=== PATIENT | female | born 1975 | race Caucasian/White ===

== ENCOUNTER 2020-06-09 16:55 | Outpatient (RCR) | payer OTHER, SELFPAY ==
[2020-06-09] MEDS: COVID-19 VACC, MRNA(PFIZER)/PF 30 MCG/0.3 ML SYRINGE IM (17:33)
[2020-07-09] MEDS: COVID-19 VACC, MRNA(PFIZER)/PF 30 MCG/0.3 ML SYRINGE IM (10:17)
== END 2020-09-01 23:59 ==
LOC: IMMUN 16:55
PROVIDERS: PCP Student in an Organized Health Care Education/Training Program; Referring Provider Family Medicine; Visit Provider Family Medicine
DX: Z23 Encounter for immunization (principal)
CPT/HCPCS: 0001A; 0002A; 91300

== ENCOUNTER → 2020-10-08 11:29 | Outpatient (CLI) | payer OTHER, SELFPAY ==
[2020-10-08 09:28] VITALS: BMI 41.9
[2020-10-13 14:10] LABS: HPV APTIMA, High Risk Negative (Negative)
== END ==
PROVIDERS: PCP Student in an Organized Health Care Education/Training Program; Referring Provider Nurse Practitioner Women's Health; Visit Provider Nurse Practitioner Women's Health
DX: Z12.4 Encounter for screening for malignant neoplasm of cervix (principal)
CPT/HCPCS: 87624; 88175; G0145

== ENCOUNTER → 2020-10-10 10:24 | Outpatient (CLI) | payer OTHER, SELFPAY ==
[2020-10-08 09:28] VITALS: BMI 41.9
--- NOTE | 2020-10-10 10:24 | US_ITS ---
STUDY: ULTRASOUND OF THE FEMALE PELVIS - COMPLETE REASON FOR EXAM: Female, 45 years old. Menorrhagia LMP: 09/30/2020 TECHNIQUE: Transabdominal and Transvaginal TECHNICAL QUALITY: Adequate. COMPARISON: None. FINDINGS: The uterus is anteverted and is in a midline position. The uterus measures 9.0 x 5.8 x 4.4 cm. Normal uterine cervix. The endometrium measures 11 mm in thickness, and is hyperechoic. There is a 1.3 x 1.4 x 1.0 cm hypoechoic fibroid in the lower uterine segment. There is an abnormal echogenic, hyperemic, well-defined cervical mass measuring 3.6 x 3.9 x 2.6 cm. Further evaluation with direct visualization is recommended. This likely either represents an inflammatory process or cervical carcinoma. The right ovary is visualized. The right ovary measures 10.8 x 8.2 x 6.2 cm. Multiple simple cysts, largest measures 6.7 x 5.7 x 5.5 cm There is normal arterial and normal venous vascularity. The left ovary is visualized. The left ovary measures 7.4 x 5.8 x 7.2 cm. There is simple cysts, largest measures 6.3 x 4.6 x 5.2 cm There is normal arterial and normal venous vascularity. There is no fluid in the cul-de-sac. The bladder is incompletely distended US/Transvaginal Non- IMPRESSION: Abnormal 3.6 x 3.9 x 2.6 cm hyperemic cervical mass. This likely represents an inflammatory process or cervical carcinoma. Direct visualization recommended for further evaluation Small 1.4 cm fibroid in the lower uterine segment Bilateral simple ovarian cysts, given the patient''s age, follow-up is recommended to ensure resolution of the cysts No free fluid Electronically Signed: Codey Mcarthur MD at 9:36 EDT , Service support ,
== END ==
PROVIDERS: PCP Student in an Organized Health Care Education/Training Program; Referring Provider Nurse Practitioner Women's Health; Visit Provider Nurse Practitioner Women's Health
DX: N92.0 Excessive and frequent menstruation with regular cycle (principal)
CPT/HCPCS: 76830

== ENCOUNTER 2020-10-27 09:52 | Day surgery (SDC) | payer OTHER, SELFPAY ==
[2020-10-13 11:42] VITALS: BMI 41.9
[2020-10-20 11:06] VITALS: BMI 41.9
--- NOTE | 2020-10-21 08:39 | EKG12_ITS ---
Test Reason : PRE OP Blood Pressure : / mmHG Vent. Rate : 088 BPM Atrial Rate : 088 BPM P-R Int : 138 ms QRS Dur : 084 ms QT Int : 356 ms P-R-T Axes : 045 014 039 degrees QTc Int : 430 ms Normal sinus rhythm Normal ECG Confirmed by BREE HEREDIA, FELICE ([id number]), editorial cartoonist JOSSIE CARR ([id number]) on 10/21/2020 1:15:55 PM Referred By: Arelis Alves Confirmed By:FELICE GIRON MD
[2020-10-21 09:26] LABS: Absolute Lymphocyte Count 0.92 X10^3/uL (0.83-4.51); Basophil# 0.02 X10^3/uL; Basophil% 0.4 % (0-1); Eosinophil# 0.12 X10^3/uL; Eosinophils% 2.2 % (0-5); Hematocrit 25.2 % (37-47); Hemoglobin 7.3 g/dL (12.0-15.0); Lymphocyte # 0.92 X10^3/ul (0.83-4.51); Mean Corpuscular Hgb 25.9 pg (27.0-32.0); Mean Corpuscular Volume 89.4 fL (81-99); Mean Platelet Vol. 9.4 fl (6.2-12.0); Monocyte# 0.34 X10^3/uL; Monocyte% 6.3 % (0-10); NRBC Flagged by Analyzer 0 % (0-5); Neutrophil # 3.97 X10^3/uL (2.7-7.7); Neutrophil % 73.5 % (47-70); Platelet Count 311 K/mm3 (150-450); RBC Distribution Width CV 19.1 % (11.6-14.6); RBC Distribution Width SD 60.9 fl (35.1-43.9); Red Blood Count 2.82 M/mm3 (4.2-5.4); White Blood Count 5.4 K/mm3 (4.4-11.0)
[2020-10-21 09:35] LABS: International Normalized Ratio 1.1; Prothrombin Time (Protime)PT. 13.5 SECONDS (11.7-14.9)
[2020-10-21 09:37] LABS: Partial Thromboplast Time 26.2 Seconds (24.1-36.2)
[2020-10-21 10:03] LABS: AST(SGOT) 8 U/L (15-37); Alanine Aminotransfer ALT/SGPT 14 U/L (13-56); Albumin, Serum 3.5 g/dL (3.2-5.0); Alkaline Phosphatase 39 U/L (45-117); Anion Gap 6 (5-15); BUN 7 mg/dL (7-18); BUN/Creat Ratio 10.6 RATIO (10-20); Calcium,Total 8.2 mg/dL (8.5-10.1); Chloride 107 mmol/L (98-107); Creatinine, Serum 0.66 mg/dL (0.55-1.02); EST Glomerular Filtration Rate 103 mL/min (>60); Est Glom Filt Rate - Afr Amer 124 mL/min (>60); Globulin 3.4 g/dL (2.2-4.2); Glucose 172 mg/dL (74-106); Protein, Total 6.9 g/dL (6.4-8.2); Sodium Level 139 mmol/L (136-145)
[2020-10-21 10:14] LABS: Magnesium 2.1 mg/dL (1.6-2.6)
[2020-10-21 10:36] LABS: Hemoglobin A1c < 3.8 % (3.8-5.6)
--- NOTE | 2020-10-26 18:53 | PCM.HP.BLA ---
History and Physical Date of Admission: 10/27/20 Vital Signs 10/20/20 11:05 10/20/20 11:06 Height 5 ft 6.5 in Weight: 262 lb BMI 41.6 41.9 BP 142/70 H Intake Visit Reasons: preop/consult Chief Complaint: pre op Is patient in pain?: No Allergies prednisone Adverse Reaction (Unknown, Verified 10/08/20 09:31) Other Medications cholecalciferol (vitamin D3) 125 mcg (5,000 unit) capsule 125 mcg PO DAILY 10/08/20 [History Confirmed 10/20/20] dulaglutide 3 mg/0.5 mL subcutaneous pen injector 3 mg SUBCUT QWEEK 10/08/20 [History Confirmed 10/20/20] insulin glargine 100 unit/mL (3 mL) subcutaneous pen 22 unit SUBCUT .q hs ml 10/08/20 [History Confirmed 10/20/20] lisinopril 20 mg tablet 20 mg PO DAILY 10/08/20 [History Confirmed 10/20/20] mecobalamin (vitamin B12) 10,000 mcg solution for injection mcg SUBCUT 10/08/20 [History Confirmed 10/20/20] naproxen sodium 220 mg capsule 220 mg PO Q12H 10/08/20 [History Confirmed 10/20/20] norethindrone acetate 5 mg tablet 5 mg PO .COMPLEX #45 tab 10/08/20 [Rx Confirmed 10/20/20] venlafaxine 75 mg capsule,extended release 24 hr 75 mg PO DAILY 10/08/20 [History Confirmed 10/20/20] triamcinolone acetonide 0.1 % topical cream 1 applic TOPICAL DAILY 10/20/20 [History Confirmed 10/20/20] Is last menstrual period known: No Post menopausal: No Patient : No : No PFSH Medical History (Updated 10/20/20 @ 11:[address] 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 Chronic anemia Depression DM type 2 (diabetes mellitus, type 2) HTN (hypertension) Family History Unknown Diabetes Hypertension Social History household members: family current occupational status: employed current occupation: [employer] history of recent travel: No Smoking Status: Former smoker alcohol intake: current alcohol intake frequency: a few times a month substance use type: does not use diet: lactose free what type of physical activity do you participate in: walking seatbelt use: sometimes do you feel safe at home: Yes additional social history: single HPI preop/consult Details: RICH DAMICO is a 45 year old who presents for preop visit and discussion of surgery. Upon further evaluation she has severe chronic anemia that is likely due to menstrual blood loss with hemoglobin of 6 last week. 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 Hemoglobin this week is 7. Patient is not having any bleeding on the Aygestin at present. Female Reproductive History Menopausal Symptoms: No night sweats Pregancy History 0 Elective abortions Hx Para Spontaneous abortions Hx # Term Pregnancies Ectopic pregnancies Hx # Pregnancies Multiple births # of living children ROS Const Constitutional: Reports fatigue; Denies night sweats, weight gain or weight loss ENT ENT: Reports system reviewed and no additional complaints, except as documented Cardio Card: Reports rapid heart rate; Denies chest pain Resp Resp: Denies cough or dyspnea GI GI: Reports as per HPI and abdominal pain; Denies constipation, nausea or vomiting : Denies nipple discharge, urinary frequency, urinary incontinence, urinary hesitancy, urinary urgency, vaginal discharge, vaginal dryness, vaginal odor or vaginal pruritus Musc Musc: Denies arthralgias, back pain or muscle weakness Skin Skin/Breast: Denies alopecia, change in hair, dry skin, breast mass, breast pain, breast skin changes or nipple discharge Neuro Neuro: Reports system reviewed and no additional complaints, except as documented Psych Psych: Reports system reviewed and no additional complaints, except as documented Endo Endo: Denies cold intolerance, excessive sweating, heat intolerance or polydipsia Roverto/Lymph Hematologic/Lymphatic: Denies easy bleeding, Denies easy bruising and Denies lymphadenopathy Exam Const General: cooperative, healthy appearing, comfortable, no acute distress and well developed Orientation: alert HENMT Head: normal to inspection and normocephalic Ears: hearing grossly normal bilaterally and external ears normal Nose: external nose normal and nares normal Face and sinus: normal facial exam Neck Neck: normal visual inspection and no lymphadenopathy Thyroid: thyroid normal Chest Chest palpation & inspection: normal inspection of the chest Resp Effort & Inspection: normal respiratory effort Auscultation: clear to auscultation bilaterally Cardio Rate: regular rate Rhythm: regular rhythm Heart Sounds: S1 normal and S2 normal GI Inspection: normal to inspection and non-distended Palpation: soft and no hepatosplenomegaly Musc Other: gross motor intact no deficits, full bilateral strength Skin General: no rashes or lesions noted Neuro General: patient alert, patient awake, moves all extremities and no focal motor deficits Motor: muscle tone normal throughout Extrem General: normal to inspection and no pedal edema Psych Appearance: grossly normal Mental Status: mental status grossly normal Affect: normal affect Speech and Movement: speech and movement normal Coding Level of Care Code Off vis,est,level 5 Diagnoses Ovarian cyst N83.209 Uterine fibroid D25.9 Chronic anemia D64.9 Cervical mass N88.8 Menorrhagia with irregular cycle N92.1 Assessment and Plan Assessment and Plan (1) Ovarian cyst: Status: Acute Comment: bilateral, >6cm each side, simple, recommend cystectomy possible oophorectomy. Plan - Dr. Arelis Alves MD: Letter counseling and evaluation, due to the location of the fibroids and risk of their recurrence and risk factors for persistent heavy menses and anemia, discussed options for treatment including hysterectomy versus hysteroscopic removal. After discussing the patient's diagnosis and treatment plan options, patient wishes to proceed with surgical management. I have discussed with the patient the risks, benefits, and alternatives of the procedure which include but are not limited to risks of anesthesia, bleeding, infection, possible damage to bowel, bladder, or surrounding vasculature which could lead to additional surgery to evaluate any complications. Patient agrees to procedure and wishes to proceed. ACOG/uptodate references given for additional information regarding procedure. (2) Uterine fibroid: Status: Acute Comment: plan LAVH BS and bilateral ovarian cystectomy (3) Chronic anemia: Status: Chronic Comment: sees Dr Chambers and has Fe infusions. likely due to menses, recommend definitive therapy with LAVHBS (4) Cervical mass: Status: Acute (5) Menorrhagia with irregular cycle: Status: Acute Comment: likely secondary to fibroids, aygestin short term, needs surgical management. UPDATE- I have seen the patient and performed any clinically relevant updates to the history and physical exam. Arelis Alves MD
[2020-10-27] VITALS (11 sets, daily range): BP systolic 128–176; BP diastolic 70–85; PULSE 76–94; RESP 16–18; TEMP 35.8–37.2; O2SAT 95–100; BMI 41.3
[2020-10-27 10:23] LABS: Internal QC Validated? YES +Cl - CLEAR BKGD; Pregnancy, Urine Negative Negative
[2020-10-27] MEDS: Scopolamine 1mg/72hr Patch 1 PATCH TD (10:42)
[2020-10-27] MEDS: Phenazopyridine 95 MG Tablet 190 MG PO (10:44)
[2020-10-27] MEDS: Acetaminophen 500 MG Tablet 1000 MG PO ×3 (10:44→23:13)
[2020-10-27] MEDS: Celecoxib 200 MG Capsule 400 MG PO (10:44)
[2020-10-27] MEDS: Gabapentin 600 MG Tablet PO (10:45)
[2020-10-27] MEDS: Enoxaparin 40 MG/0.4 ML Syringe SC (10:49)
[2020-10-27 10:50] LABS: Bedside Glucose 174 mg/dL (70-110)
[2020-10-27] MEDS: Lactated Ringers 1,000 ML 100 ML IV (11:14)
--- NOTE | 2020-10-27 12:05 | HYST_PTH ---
PATIENT: RICH DAMICO LOC: [facility] [place] U#:[id number] AGE/SX: 45/F ROOM: RE10/27/[address]: Dr. Arelis Alves MD : 1975 BED: DIS: 10/28/2020 SPEC #: [id number] RECD: 10/28/20 10:16 STATUS: JEFFERY SIL #: [id number] ELIF: 10/27/20 12:[address]: Arelis Alves DEPT: SURGICAL PATHOLOGY RECD BY: Catalina Dillard ENTERED: 10/28/20 10:51 SP TYPE: HYSTERECT OTHR DR: Dr. Codey Quevedo DO Tissues: Uterus, NOS Procedures: Decalcification bone/plaque Surgery Specimen Level HEADER OPERATION: Total laparoscopic hysterectomy, bilateral ovarian cystectomy PRE-OP DIAGNOSIS: Menorrhagia with irregular cycle, chronic anemia, uterine fibroid, ovarian cyst TISSUE SUBMITTED: Uterus, fallopian tubes, bilateral ovarian cystectomies MICROSCOPIC DIAGNOSIS Uterus, bilateral fallopian tubes, bilateral ovaries and cyst, hysterectomy, bilateral salpingectomy and bilateral ovarian cystectomy: Polypoid endometrial adenocarcinoma, FIGO I. See cancer summary in the comment section. SJ:ana 11/04/2020 COMMENT ENDOMETRIUM CANCER SUMMARY: Procedure ? total hysterectomy and bilateral salpingectomy and bilateral ovarian cystectomy Hysterectomy type ? laparoscopic hysterectomy Specimen integrity - intact Tumor site ? endometrium and endometrial polyp Tumor size ? endometrial polyp ? 6 x 2.5 x 2 cm Histologic type ? endometrial carcinoma, NOS and endometrial carcinoma arising in atypical polypoid adenomyoma. Histologic grade - FIGO grade I Myometrial invasion ? not identified Adenomyosis ? present and uninvolved by carcinoma. Uterine serosa involvement ? not present Lower uterine segment involvement ? not identified Cervical stromal involvement ? not identified Other tissue/organ involvement ? not identified Peritoneal/ascitic fluid ? not submitted Lymphvascular invasion ? not identified Regional lymph nodes ? no lymph nodes submitted or found. Additional pathologic findings: Cervix ? chronic inflammation. Endometrium ? foci of intramucosal carcinoma and uninvolved endometrium with secretory changes. Myometrium ? intramural leiomyoma (1 cm in diameter) - Focal adenomyosis. Bilateral fallopian tubes - no pathologic diagnosis. Right ovary ?simple serous cystadenofibroma. Left ovary - simple serous cystadenofibroma with focal calcification. - Focal endometriosis. Bilateral tubo-ovarian adhesions. Ancillary studies ? Please refer to consultation report from [facility]. PATHOLOGIC STAGE: pT1a pNx pMx FIGO grade stage (2018 FIGO cancer report) ? FIGO grade IA The above summary is in compliance with College of [place] [employer] (CAP) Cancer Protocols Checklist and [place] Joint Committee of Cancer (AJCC), Staging Manual, 8th Ed. Portion of the specimen containing all the slides from the endometrial polyp and sections of uterine wall are sent to [facility] for expert opinion, and reviewed by Dr. Whitmore and the above diagnosis is rendered. The complete report is viewable in the patient's EMR. Case has been reviewed in consultation with Dr. Hutson who concurs with the above diagnosis. IDC:AM MICROSCOPIC DESCRIPTION Slides are reviewed. GROSS DESCRIPTION Received in fixative is one container labeled with the patient's name and designated uterus, fallopian tubes, bilateral ovarian cystectomies. The specimen consists of a hysterectomy specimen consisting of uterus with cervix and attached bilateral fallopian tubes and bilateral ovarian cysts. The uterus with cervix weighs 109 gm and measures 8.5 x 6.5 x 4.5 cm. The serosal surface is focally ragged. The ectocervical mucosa is unremarkable. The external os is oval and patulous in contour. The endocervical canal is saucer-shaped and measures 3 cm in length and up to 2.5 cm in diameter. The endocervical mucosa is carter, glistening and unremarkable. The triangular endometrial cavity measures 4 cm in length and up to 2.5 cm in width. The endometrial cavity shows a large polyp occupying the whole endometrial cavity and also protruding into the endocervical canal up to the external os and measures 6 x 2.5 x 2 cm. The myometrial wall underneath the polyp is not indurated. The polyp is attached at the fundus of the anterior uterine wall. Sections of the polyp reveal carter, solid cut surfaces. The rest of the endometrium is carter, glistening and measures 0.1 cm in thickness. Sections of the uterine wall reveal one nodular mass measuring 1 cm in diameter. Sections of this mass reveal carter whorled cut surfaces without areas of hemorrhage, necrosis or cystic degeneration. The uninvolved uterine wall measures up to 2 cm in thickness. The right fallopian tube measures 8.5 cm in length and 0.5 cm in diameter. Fallopian tube is adherent to right ovarian cyst. The fimbrial end is identified. The previously partially open right ovarian cyst measures 4 x 2 x 1 cm. External surface does not show any papillations and inked black. Section reveal smooth cyst wall measures up to 0.2 cm in thickness. The left fallopian tube measures 10.5 cm in length and up to 0.8 cm in diameter. The fallopian tube is adherent over the left ovarian cyst. The fimbrial end is not identified. Left ovarian cyst measures 6.5 x 5 x 3 cm. No papillations are identified. The external surface is inked. Sections reveal multiloculated cyst. Cyst wall measures up to 0.2 cm in thickness. No cyst contents are noted. No papillations are identified. The focal area of cyst wall also shows calcified area. Judicial Administrative Assistant sections are submitted in 22 cassettes as follows: 1 - anterior cervix, 2??posterior cervix, 3 & 4 - anterior uterine wall, 5 & 6 - posterior uterine wall, 7 - nodular mass and polyp with underlying uterine wall, 8-13 - rest of the endometrial polyp (entire polyp is submitted), 1417 - right fallopian tube and right ovarian cyst, 18-22 - left fallopian tube and ovarian cyst. Cassette 22 is submitted after decalcification. / HAVEN:ana 10/28/20 The rest of the endometrium is submitted in four more cassettes, 23-26. / HAVEN:ana 11/03/20 TC:0 CPT: 24354, 16665
[2020-10-27] MEDS: Cefazolin 2 GM in 0.9% Normal Saline 100 ML IV (13:23)
--- NOTE | 2020-10-27 13:32 | OP.PCM_ITS ---
Problems Associated Problem List Diagnoses (1) Menorrhagia with irregular cycle: (2) Chronic anemia: (3) Uterine fibroid: (4) Ovarian cyst: (5) Cervical mass: Report of Operation Date of Procedure: 10/27/20 Pre-Operative Diagnosis: see PL Post-Operative Diagnosis: same Surgery/Procedure Performed:: TLHBS bilateral ovarian cystectomies cystoscopy senior systems programmer: Gumaro Vigil Type of Anesthesia: General Specimen's removed: uterus, tubes ovarian cysts Drains: stallings Fluids Replaced: crystalloid Description of Procedure: Patient received preoperative antibiotics and SCDs were on preoperatively. Patient was taken back to the operating room and placed in the dorsal lithotomy position. General anesthesia was induced and patient was prepped and draped in normal sterile fashion. Uterine manipulator was placed inside the uterus and Stallings catheter placed in the bladder. The umbilicus was grasped with towel clamps and an intraumbilical incision was made after injecting with quarter percent Marcaine and a Veress needle entered into the abdomen confirmed to be intra-abdominal with a low opening pressure. Abdomen was insufflated with CO2 gas and the Veress needle removed and the 5 mm trocar was placed under direct visualization without complication. Right and left lower quadrants were transilluminated and injected with quarter percent Marcaine and 5 mm ports placed under direct visualization. Pelvis was well visualized see operative findings for additional information. Bilateral fallopian tubes were identified and transected with the LigaSure device across the mesosalpinx to the level of the utero-ovarian ligament which was also transected with the LigaSure device. The broad ligament was opened up by transecting the round ligament bilaterally and skeletonizing the uterine vessels bilaterally and creating a bladder flap using the LigaSure device. The uterine arteries were transected bilaterally with good visualization of the bladder and the ureters were seen to be inferior lateral to the operative area. Attention was then paid to the vaginal portion of the procedure and the cervix was grasped and very minimal descent was noted and there was limited vaginal access and therefore the decision to convert the procedure to a total laparoscopic hysterectomy was done. Attention was then paid to the laparoscopic portion and after replacing the uterine manipulator with and an aventicular manipulator, the anterior and posterior colpotomy were made and circumferentially made around to separate the uterus from its attachment to the mucosa. Uterus was then removed through the vagina without any morcellation necessary. The cuff closure was then done vaginally, the vaginal mucosa was reapproximated incorporating the posterior peritoneum. This was reapproximated using 0 Vicryl [id number] sutures. Excellent hemostasis was noted. The cystoscopy was then performed and bilateral ureteral strong spray was noted and the bladder was noted to have no abnormality or lesions seen. Stallings catheter was replaced and then attention p aid to the abdominal portion of the procedure again. The pelvis and cul-de-sac were well visualized and no significant active bleeding noted but some raw areas were seen on the peritoneum and therefore Veronica was applied. Pressure was taken down and the areas visualized and noted of excellent hemostasis. All ports were removed under direct visualization without complication and the abdomen was desufflated of air. The instruments were removed from the abdomen and the vaginal sweep was negative. Port sites on the abdomen were closed with 4-0 Monocryl interrupted sutures and Steri's and windows were applied. She was awoken and taken recovery in stable condition. Grafts/Implants Used: none Complications none Admit VTE Documentation VTE Present on Admission: No VTE Mechan Device Prophylaxis: SCD's VTE Pharm Prophylaxis ordered?: Yes Procedures Urinary/Genital 52xxx-59xxx: 31373 TLH+BS/O <250gr uterus (bilateral ovarian cystectomies) Multi Select Codes Urinary/Genital Urinary/Genital CPT Codes: 58027 LAVH+BS/O <250gr Uterus
--- NOTE | 2020-10-27 13:41 | EX.PCM.DISCH ---
Discharge Instructions Procedure Vaginal Delivery Diet Discharge Diet: No restrictions Activity Discharge Activity: Return to Normal Activity, May Not Drive (while taking narcotic pain medications.) and May Shower May resume sexual activity in: 4-6 weeks Dressing / Incision Call your doctor if your incision/area has: Continuous Slow Oozing, Sudden Increased Bleeding, Increased Pain/ Swelling, Increased Redness and Foul Smelling Discharge Follow Up Care Please Follow Up With: Arelis Alves MD When: Call [phone] to make an appointment with your doctor in 6 weeks. If you had elevated blood pressure or 4th degree laceration, you will need to be seen in 2 weeks. Test Results: Test results from this visit will be discussed in further detail at your follow-up appointment, if applicable. Discharge Plan Admission Primary Reason for Your Visit: hysterectomy Attending Provider: Arelis Alves Primary Care Provider: Codey Quevedo Discharge Orders/Prescriptions Prescriptions: New naproxen 250 MG tablet 250 - 500 mg PO Q8H PRN PRN (Reason: MILD PAIN) Qty: 30 RF: 1 oxycodone-acetaminophen [Endocet] 5-325 mg tablet 1 tab PO Q4H PRN (Reason: pain) 7 Days Qty: 20 RF: 0 Continued Trulicity 3 mg/0.5 mL pen injector 3 mg subcut QWEEK RF: 0 Lantus Solostar U-100 Insulin 100 unit/mL (3 mL) insulin pen 22 unit subcut .q hs RF: 0 cholecalciferol (vitamin D3) 125 mcg (5,000 unit) capsule 125 mcg PO DAILY RF: 0 venlafaxine 75 mg capsule,extended release 24hr 75 mg PO DAILY RF: 0 lisinopril 20 mg tablet 20 mg PO QHS RF: 0 naproxen sodium [Aleve] 220 mg capsule 220 mg PO Q12H RF: 0 B12 5,000-100 mcg Lozenge 1 traci SUBLINGUAL DAILY RF: 0 Discontinued norethindrone acetate [Aygestin] 5 mg tablet 5 mg PO .COMPLEX RF: 0 Referrals / Follow Up: Codey Quevedo DO [Primary Care Provider] - Disposition Disposition (needs filled in before D/C Order can be placed): Home, Self Care
[2020-10-27] MEDS: Lactated Ringers 1,000 ML 70 ML IV ×3 (14:01→16:01)
[2020-10-27] MEDS: Vasopressin 20 UNITS/ML Vial (15:00)
[2020-10-27] MEDS: Bupivacaine 0.25% 30 ML Vial (15:40)
[2020-10-27] MEDS: Ondansetron 4 MG/2 ML Vial IV (15:49)
[2020-10-27 16:25] LABS: Bedside Glucose 169 mg/dL (70-110)
--- NOTE | 2020-10-27 16:54 | SUR.PHASEI ---
AT 1645, KRAUSE CATHETER REMOVED INTACT
[2020-10-27 18:16] LABS: Bedside Glucose 181 mg/dL (70-110)
[2020-10-27] MEDS: Insulin Lispro 100 UNIT/ML INSULN.PEN SC ×2 (18:17→22:20)
[2020-10-27 18:38] LABS: Hemoglobin 8.5 g/dL (12.0-15.0)
[2020-10-27] MEDS: Lisinopril 20 MG Tablet PO (20:24)
[2020-10-27] MEDS: Docusate Sodium 100 MG Capsule PO (22:19)
[2020-10-27] MEDS: Venlafaxine XR 75 MG Capsule PO (22:19)
[2020-10-27 22:30] LABS: Bedside Glucose 176 mg/dL (70-110)
[2020-10-27] MEDS: Ketorolac 30 MG/ML Syringe IV (23:12)
[2020-10-28 02:14] VITALS: BP 142/63; PULSE 76; RESP 18; TEMP 37.2; O2SAT 98
[2020-10-28] MEDS: Ketorolac 30 MG/ML Syringe IV (05:47)
[2020-10-28] MEDS: Acetaminophen 500 MG Tablet 1000 MG PO (05:47)
[2020-10-28 05:55] LABS: Bedside Glucose 143 mg/dL (70-110)
[2020-10-28 06:59] LABS: Hematocrit 26.4 % (37-47); Hemoglobin 7.6 g/dL (12.0-15.0); Mean Corp Hgb Conc 28.8 g/dL (32-36); Mean Corpuscular Volume 90.4 fL (81-99); Mean Platelet Vol. 9.8 fl (6.2-12.0); Platelet Count 264 K/mm3 (150-450); RBC Distribution Width CV 17.5 % (11.6-14.6); RBC Distribution Width SD 58.7 fl (35.1-43.9); Red Blood Count 2.92 M/mm3 (4.2-5.4); White Blood Count 5.9 K/mm3 (4.4-11.0)
[2020-10-28 07:28] VITALS: O2SAT 97
--- NOTE | 2020-10-28 08:03 | PN.OBGYN_ITS ---
Subjective Subjective patient recovering well, denies CP, SOB, N, or V. patient is ambulating, voiding ,tolerating adequate po, and pain is controlled with oral medications. Objective Data Objective Data Vital Signs: Vital Signs Temp Pulse Resp BP Pulse Ox 99 F 76 18 142/63 H 98 10/28/20 02:14 10/28/20 02:14 10/28/20 02:14 10/28/20 02:14 10/28/20 02:14 Oxygen Flow Rate (L/min) 6 Oxygen Delivery Method Room Air Weight: 260 lb 5.855 oz Body Mass Index (BMI) 41.3 Intake & Output: Intake and Output for Last 24 Hours 10/26/20 10/27/20 10/28/20 23:59 23:59 23:59 Intake Total 3665.5 / 3665.5 240 / 240 Output Total 1140 / 1140 900 / 900 Balance 2525.5 / 2525.5 -660 / -660 Lab / Micro Data Result Diagrams: 10/28/20 06:30 10/21/20 08:48 Labs: Laboratory Results - last 24 hr 10/21/20 08:48: Blood Type O POSITIVE, Antibody Screen NEGATIVE, Crossmatch See Detail 10/27/20 10:10: Urine Test Negative 10/27/20 10:28: POC Glucose 174 H 10/27/20 16:20: POC Glucose 169 H 10/27/20 18:06: Hgb 8.5 L 10/27/20 18:13: POC Glucose 181 H 10/27/20 22:19: POC Glucose 176 H 10/28/20 05:46: POC Glucose 143 H 10/28/20 06:30: WBC 5.9, RBC 2.92 L, Hgb 7.6 L, Hct 26.4 L, MCV 90.4, MCH 26.0 L , MCHC 28.8 L, RDW Std Deviation 58.7 H, RDW Coeff of Tomas 17.5 H, Plt Count 264, MPV 9.8 Physical Exam Const alert, oriented x3 and no apparent distress Resp normal respiratory effort GI soft to palpation and non-distended Inspection: incision other (dressing dry and intact) Narrative: Minimal drainage on peripad Bladder / Kidney Exam: catheter in place Assessment & Plan (1) S/P laparoscopic assisted vaginal hysterectomy (LAVH): (2) Chronic anemia: COMMENT: sees Dr Chambers and has Fe infusions. likely due to menses, recommend definitive therapy with LAVHBS PLAN: patient is s/p LAV BS POD 1 1. routine ERAS protocol postop care- increase ambulation, encourage oral intake and oral control of pain. lovenox and scds for dvt prophylaxis, patient stable for discharge to home. 2. has follow up with Dr Chambers for anemia
--- NOTE | 2020-10-28 08:07 | EX.PCM.DISCH ---
Discharge Instructions Procedure Hysterectomy, Vaginal Diet Discharge Diet: No restrictions Activity May resume sexual activity in: 4-6 weeks Dressing / Incision Call your doctor if your incision/area has: Continuous Slow Oozing, Sudden Increased Bleeding, Increased Pain/ Swelling, Increased Redness and Foul Smelling Discharge Call your doctor if you observe: Fever of 101 or Higher, Inability to urinate, Inability to have a bowel movement and Using more than 1 pad per hour Follow Up Care Please Follow Up With: Arelis Alves MD Test Results: Test results from this visit will be discussed in further detail at your follow-up appointment, if applicable. Discharge Plan Admission Primary Reason for Your Visit: hysterectomy Attending Provider: Arelis Alves Primary Care Provider: Codey Quevedo Discharge Orders/Prescriptions Prescriptions: New naproxen 250 MG tablet 250 - 500 mg PO Q8H PRN PRN (Reason: MILD PAIN) Qty: 30 RF: 1 oxycodone-acetaminophen [Endocet] 5-325 mg tablet 1 tab PO Q4H PRN (Reason: pain) 7 Days Qty: 20 RF: 0 Continued Trulicity 3 mg/0.5 mL pen injector 3 mg subcut QWEEK RF: 0 Lantus Solostar U-100 Insulin 100 unit/mL (3 mL) insulin pen 22 unit subcut .q hs RF: 0 cholecalciferol (vitamin D3) 125 mcg (5,000 unit) capsule 125 mcg PO DAILY RF: 0 venlafaxine 75 mg capsule,extended release 24hr 75 mg PO DAILY RF: 0 lisinopril 20 mg tablet 20 mg PO QHS RF: 0 naproxen sodium [Aleve] 220 mg capsule 220 mg PO Q12H RF: 0 B12 5,000-100 mcg Lozenge 1 traci SUBLINGUAL DAILY RF: 0 Discontinued norethindrone acetate [Aygestin] 5 mg tablet 5 mg PO .COMPLEX RF: 0 Referrals / Follow Up: Codey Quevedo DO [Primary Care Provider] - Disposition Disposition (needs filled in before D/C Order can be placed): Home, Self Care
[2020-10-28 08:27] VITALS: BP 118/56; PULSE 83; RESP 18; TEMP 36.8; O2SAT 98
[2020-10-28] MEDS: Enoxaparin 40 MG/0.4 ML Syringe SC (08:34)
[2020-10-28] MEDS: Docusate Sodium 100 MG Capsule PO (08:34)
[2020-10-28 10:34] VITALS: BP 140/55; PULSE 97; RESP 18; TEMP 37.2; O2SAT 99
== END 2020-10-28 11:28 | disposition home or self-care (01) ==
LOC: SDC 09:57 → AC 09:57 → MS3 10-29 11:02
PROVIDERS: Anesthesiology; PCP Student in an Organized Health Care Education/Training Program; Referring Provider Obstetrics & Gynecology; Visit Provider Obstetrics & Gynecology
PROC: 0UT9FZZ Resection of Uterus, Via Natural or Artificial Opening With Percutaneous Endoscopic Assistance (ICD-10-PCS; CPT 58552; principal; 2020-10-27 11:40)
DX: C54.1 Malignant neoplasm of endometrium (principal); D25.1 Intramural leiomyoma of uterus; N80.0 Endometriosis of uterus; N72 Inflammatory disease of cervix uteri; D27.1 Benign neoplasm of left ovary; D27.0 Benign neoplasm of right ovary; N80.1 Endometriosis of ovary; D64.9 Anemia, unspecified; F32.9 Major depressive disorder, single episode, unspecified; E11.9 Type 2 diabetes mellitus without complications; I10 Essential (primary) hypertension; Z87.891 Personal history of nicotine dependence; Z79.4 Long term (current) use of insulin; Z79.899 Other long term (current) drug therapy
CPT/HCPCS: 58552; 36415; 80053; 81025; 82962; 83036; 83735; 85018; 85025; 85027; 85610; 85730; 86850; 86900; 86901; 86920; 88307; 88309; 88311; 93005; 94762; 99251; J7120; G0463; J2405

== ENCOUNTER → 2022-05-09 | Outpatient (CLI) | payer OTHER, SELFPAY ==
[2022-05-09 17:07] LABS: NATERA MAILED SPECIMEN
== END | disposition home or self-care (01) ==
LOC: LAB 16:03
PROVIDERS: PCP Student in an Organized Health Care Education/Training Program; Visit Provider Obstetrics & Gynecology
DX: Z85.42 Personal history of malignant neoplasm of other parts of uterus (principal)
CPT/HCPCS: 36415

== ENCOUNTER 2022-07-11 10:28 | Emergency (ER) | payer OTHER, SELFPAY ==
[2022-07-11 10:29] VITALS: BP 176/103; PULSE 108; RESP 16; TEMP 36.2; O2SAT 98; BMI 42.7
--- NOTE | 2022-07-11 10:34 | EDS_ITS ---
HPI <LUIS ANTONIO Wallace - Last Filed: 07/11/22 10:44> History of Present Illness Chief Complaint: Bite Narrative Narrative: Patient was feeding a stray cat when it bit her on the left hand and scratched her right hand. Cat was otherwise acting normally. Patient came in right away for evaluation. She is an insulin-dependent diabetic and states her sugars are well controlled. PFSH <LUIS ANTONIO Wallace - Last Filed: 07/11/22 10:44> [facility] Medical History (Updated 07/11/22 @ 10:[address] Jesus Ramirez MD) Abnormal genetic test Anxiety ASCUS of cervix with negative high risk HPV Chronic anemia Depression Dietary restriction DM type 2 (diabetes mellitus, type 2) Endometrioid adenocarcinoma of uterus Former smoker Gastric reflux History of COVID-19 History of edema HTN (hypertension) Restless legs Wears contact lenses Home Medications cholecalciferol (vitamin D3) 125 mcg (5,000 unit) capsule 125 mcg PO DAILY supplement 10/08/20 [History Last Taken Unknown] dulaglutide 3 mg/0.5 mL subcutaneous pen injector (Trulicity) 3 mg subcut QWEEK blood glucose 10/08/20 [History Last Taken Unknown] insulin glargine 100 unit/mL (3 mL) subcutaneous pen (Lantus Solostar U-100 Insulin) 22 unit subcut .q hs blood glucose 10/08/20 [History Last Taken Unknown] lisinopril 20 mg tablet 20 mg PO QHS bp 10/08/20 [History Last Taken Unknown] venlafaxine 75 mg capsule,extended release 24 hr 75 mg PO DAILY mood 10/08/20 [History Last Taken Unknown] cyanocobalamin (B12)-cobamamide 5,000 mcg-100 mcg sublingual lozenge (B12) 1 traci sublingual DAILY supplement 10/20/20 [History Last Taken Unknown] amoxicillin 875 mg-potassium clavulanate 125 mg tablet 1 tab PO BID 5 days #10 tabs 07/11/22 [Rx Last Taken Unknown] Allergy/AdvReac Type Severity Reaction Status Date / Time prednisone AdvReac Unknown Other Verified 07/11/22 10:42 Family History Unknown Diabetes Hypertension Surgical History History of colonoscopy History of LAVH Hx of myringotomy Social History household members: family current occupational status: employed current occupation: [employer] history of recent travel: No Smoking Status: Former smoker alcohol intake: current alcohol intake frequency: a few times a month substance use type: does not use diet: lactose free what type of physical activity do you participate in: walking seatbelt use: sometimes do you feel safe at home: Yes additional social history: single ROS <LUIS ANTONIO Wallace - Last Filed: 07/11/22 10:44> ROS ED ROS Narrative Constitutional: Negative for fever, chills, malaise. Neuro: Negative for motor/sensory dysfunction. Skin: Positive for wound. Musc: Negative for joint pain, swelling. EXAM <LUIS ANTONIO Wallace - Last Filed: 07/11/22 10:44> Physical Exam Narrative Exam Narrative: CONST: Patient sitting in no acute distress. EYES: Normal inspection. NECK: Normal inspection. RESP: No respiratory distress, CTAB. CVS: Regular rate and rhythm, no murmur, no gallop. SKIN: 2 superficial cat scratches dorsal right hand. 1 puncture wound on left thenar eminence, several scattered small scratches on dorsal left hand. EXTREMITIES: Normal appearance of both upper extremities, normal motor and sensory function in median ulnar and radial distributions, 2+ radial pulses and brisk cap refill. NEURO: Oriented x4. PSYCH: Normal affect. Const Vital Signs: 07/11/22 10:29 Temperature 97.2 F L Temperature Source Temporal Pulse Rate 108 H Respiratory Rate 16 Blood Pressure 176/103 H Blood Pressure Mean 127 Pulse Ox 98 Oxygen Delivery Method Room Air <Dr. Jesus Ramirez MD - Last Filed: 07/11/22 10:55> Physical Exam Const Vital Signs: 07/11/22 10:29 Temperature 97.2 F L Temperature Source Temporal Pulse Rate 108 H Respiratory Rate 16 Blood Pressure 176/103 H Blood Pressure Mean 127 Pulse Ox 98 Oxygen Delivery Method Room Air MDM <LUIS ANTONIO Wallace - Last Filed: 07/11/22 10:44> MDM MDM Narrative Medical decision making narrative: Patient has Puncture wound to her left hand as well as several cat scratches on both hands. She sustained these while feeding a stray cat. The wounds are acute and do not look infected. Extremities are neurovascularly intact. Wounds were cleansed and she was given first dose of Augmentin here with prescription for home x5 days. We discussed the importance of monitoring for infection especially since she is diabetic and returning immediately for any new or worsening symptoms. We discussed that she does not need a rabies shot as the incidence is extremely low. Patient was discharged in stable condition. <Dr. Jesus Ramirez MD - Last Filed: 07/11/22 10:55> [facility] MDM Narrative Medical decision making narrative: Patient has Puncture wound to her left hand as well as several cat scratches on both hands. She sustained these while feeding a stray cat. The wounds are acute and do not look infected. Extremities are neurovascularly intact. Wounds were cleansed and she was given first dose of Augmentin here with prescription for home x5 days. We discussed the importance of monitoring for infection especially since she is diabetic and returning immediately for any new or worsening symptoms. We discussed that she does not need a rabies shot as the i ncidence is extremely low. Patient was discharged in stable condition. I have personally performed a face to face assessment of the patient and have reviewed the CARMELO Note. I performed a substantive portion of the visit including all aspects of the following. My olivarez findings include: History is remarkable for being scratched and bit by a stray cat. Patient is diabetic. Blood sugars are fairly well controlled. Patient has several scratch bui right and left hand. Bite david thenar eminence. There is no evidence infection. She presented within hours. Exam is multiple scratches and puncture wounds due to cat bite thenar eminence. There is no evidence infection. Patient was informed if her blood sugars become out of control this may be sign of infection. There is any evidence infection return. Since she does not have history of penicillin allergy she was treated with Augmentin. Medical Decision Making since patient's not allergic to Augmentin she was treated with Augmentin. She was not prophylaxed for rabies since there has not been a rapid cat since the 1960s. Other additions or changes: [None] Discharge Plan Triage Chief Complaint: Bite ED Midlevel Provider: France Archuleta ED Provider: Jseus Ramirez Dx/Rx/DC Orders Clinical Impression: Cat bite of left hand, Cat scratch of right hand, Cat scratch of left hand, History of diabetes mellitus, type II Instructions: ED Cat Bite Prescriptions: New amoxicillin-pot clavulanate 875-125 mg tablet 1 tab PO BID 5 Days Qty: 10 0RF No Action Trulicity 3 mg/0.5 mL pen injector 3 mg subcut QWEEK Lantus Solostar U-100 Insulin 100 unit/mL (3 mL) insulin pen 22 unit subcut .q hs cholecalciferol (vitamin D3) 125 mcg (5,000 unit) capsule 125 mcg PO DAILY venlafaxine 75 mg capsule,extended release 24hr 75 mg PO DAILY lisinopril 20 mg tablet 20 mg PO QHS B12 5,000-100 mcg Lozenge 1 traci SUBLINGUAL DAILY Primary Care Provider: Codey Quevedo Referrals: Codey Quevedo DO [Primary Care Provider] - Activity Restrictions/Additional Instructions: Return immediately for any signs of infection such as redness, swelling, pus, fever Disposition Disposition: Home, Self Care
[2022-07-11 10:53] VITALS: BP 157/96; PULSE 89; RESP 16; O2SAT 100
[2022-07-11] MEDS: Amox/Clavulanate 875 MG Tablet PO (10:56)
== END 2022-07-11 11:07 | disposition home or self-care (01) ==
PROVIDERS: Emergency Provider Emergency Medicine; PCP Student in an Organized Health Care Education/Training Program; Visit Provider Emergency Medicine
DX: S61.432A Puncture wound without foreign body of left hand, initial encounter (principal); E11.9 Type 2 diabetes mellitus without complications; Z79.4 Long term (current) use of insulin; S60.512A Abrasion of left hand, initial encounter; W55.01XA Bitten by cat, initial encounter; Y93.89 Activity, other specified; Y99.8 Other external cause status; I10 Essential (primary) hypertension; Z79.899 Other long term (current) drug therapy; Z86.16 Personal history of COVID-19; Z87.891 Personal history of nicotine dependence
CPT/HCPCS: 99283